=== PATIENT | female | born 1980 | race Caucasian/White ===

== ENCOUNTER 2017-03-11 10:09 | Inpatient (IN) | payer BC ==
[~2017-03-11] VITALS: Ht 177.8 cm; Wt 136.5 kg
[2017-03-11] MEDS ORDERED: KETOROLAC TROMETHAMINE 30 MG/ML VIAL IV STA (10:36)
[2017-03-11] MEDS ORDERED: MORPHINE SULFATE 5 MG/ML VIAL IV ONE ×2 (10:45→14:00)
[2017-03-11] MEDS ORDERED: HYOSCYAMINE SULFATE 0.5 MG/ML AMP IV ONE (10:45)
[2017-03-11 10:51] LABS: BILIRUBIN,URINE NEGATIVE (NEGATIVE); KETONES,URINE NEGATIVE (NEGATIVE); LEUKOCYTE ESTERASE ,URINE 1+ (NEGATIVE); NITRITE,URINE NEGATIVE (NEGATIVE); URINE UROBILINOGEN 0.2 mg/dL (0.2 - 1)
[2017-03-11 10:55] LABS: PREGNANCY TEST, URINE NEGATIVE (NEGATIVE)
[2017-03-11 10:57] LABS: CLARITY,URINE CLOUDY (CLEAR); COLOR,URINE YELLOW (YELLOW); PROTEIN,URINE DIPSTICK 1+ (NEGATIVE)
[2017-03-11 11:14] LABS: BASOPHILS % 0.5 % (0.0-1.0); EOSINOPHILS # (AUTO) 0.1 (0.0-0.4); HEMATOCRIT 41.6 % (34.2-44.1); HEMOGLOBIN 14.4 g/dL (12.0-16.0); LYMPHOCYTES # (AUTO) 2.8 (1.0-3.2); LYMPHOCYTES % 32.1 % (18.0-39.1); MEAN CORPUSCULAR HEMOGLOBIN 29.3 pg (28-32); MEAN CORPUSCULAR HGB CONC 34.6 g/dL (31-35); MEAN CORPUSCULAR VOLUME 84.7 fL (81-99); MONOCYTES # (AUTO) 0.7 (0.2-0.8); MONOCYTES % 7.6 % (4.4-11.3); NEUTROPHILS # (AUTO) 5.1 (2.1-6.9); NEUTROPHILS % 58.5 % (38.7-80.0); PLATELET COUNT 261 x10e3/uL (140-360); RED BLOOD COUNT 4.91 x10e6/uL (3.6-5.1); RED CELL DISTRIBUTION WIDTH 13.1 % (11.7-14.4)
[2017-03-11 11:20] LABS: BACTERIA,URINE RARE /HPF
[2017-03-11 11:22] LABS: EPITHELIAL CELLS,URINE MANY /LPF
--- NOTE | 2017-03-11 11:30 | Diagnostic Imaging Report ---
PROCEDURE:X-RAY ABDOMEN - KUB COMPARISON:None. INDICATIONS:ABDOMEN PAIN FINDINGS: BOWEL GAS PATTERN:Non-specific bowel gas pattern. Focal single dilated small bowel loop in the left abdomen measuring 3.8 cm. Mild amount of stool in the right abdomen. CALCIFICATIONS:None significant. OTHER:Normal for age. CONCLUSION: Focally dilated small bowel loop in the left abdomen measuring 3.8 cm. Correlate for possible focal enteritis. Dictated by: Robert Mauro M.D. on 03/11/2017 at 11:39 Electronically approved by: Robert Mauro M.D. on 03/11/2017 at 11:39
[2017-03-11 11:31] LABS: ALANINE AMINOTRANSFERASE 29 IU/L (0-55); ALBUMIN 3.6 g/dL (3.5-5.0); ALBUMIN/GLOBULIN RATIO 0.9 (0.8-2.0); ALKALINE PHOSPHATASE 65 IU/L (40-150); ANION GAP 11.6 mmol/L (8-16); BLOOD UREA NITROGEN 10 mg/dL (7-26); BUN/CREATININE RATIO 13 (6-25); CALCIUM 9.3 mg/dL (8.4-10.2); CARBON DIOXIDE 25 mmol/L (22-29); CHLORIDE 106 mmol/L (98-107); EST GLOMERULAR FILTRATION RATE > 60 ML/MIN (60-); GLUCOSE 100 mg/dL (74-118); LIPASE 25 U/L (8-78); POTASSIUM 3.6 mmol/L (3.5-5.1); SODIUM 139 mmol/L (136-145)
--- NOTE | 2017-03-11 12:22 | Diagnostic Imaging Report ---
PROCEDURE:US GALLBLADDER COMPARISON:CT abdomen and pelvis 02/07/2011. INDICATIONS:RUQ Pain, Nausea. Right rib pain. FINDINGS: LIVER: Size:17.7 cm in the right nidclavicular line, mildly enlarged Appearance:Normal echogenicity, smooth contour Mass:No focal masses GALLBLADDER: Stones/Sludge:Stone in the gallbladder neck. Sludge filling the remaining visualized lumen. Appearance:No wall thickening, pericholecystic fluid. 14.8 x 5.8 cm. Sonographic Cramer's Sign:Negative BILE DUCTS: Intrahepatic Ducts:No dilation Extrahepatic Ducts:Common bile duct measures 0.6 cm, mildly prominent PANCREAS: Visualized portions of the neck and proximal body are normal. RIGHT KIDNEY: Size:11.6 x 4.9 x 5.7 cm in length Echogenicity:Normal Collecting System:No hydronephrosis Stone:None Cyst/Mass:None VESSELS: Aorta:Visualized portions are normal. Inferior Vena Cava:Visualized portions are normal. Main Portal Vein:1.1 cm, normal size with hepatopedal flow. FREE FLUID: No ascites or pleural effusions. CONCLUSION: 1. Findings concerning for acute cholecystitis with a non-mobile stone in the gallbladder neck and significant sludge filling the gallbladder. Gallbladder hydrops. 2. Common bile duct is mildly prominent which raises the possibility of passing sludge. Dictated by: Robert Mauro M.D. on 03/11/2017 at 12:30 Electronically approved by: Robert Mauro M.D. on 03/11/2017 at 12:30
[2017-03-11] MEDS ORDERED: SODIUM CHLORIDE 0.9% 1000ML 1,000 ML IV SCH (14:00)
[2017-03-11] MEDS ORDERED: PIPER-TAZ 3.375 GM 50 ML IV ONE (14:00)
[2017-03-11] MEDS: SODIUM CHLORIDE 0.9% 1000ML 1,000 ML IV SCH ×2 (14:21→22:08)
[2017-03-11] MEDS ORDERED: PROBIOTIC & AC1 EACH PO (15:12)
[2017-03-11] MEDS: MORPHINE SULFATE 2 MG/ML SYR IV PRN ×2 (17:52→22:44)
[2017-03-11] MEDS: ONDANSETRON HCL INJ 2 MG/ML VIAL IV PRN ×2 (17:53→22:44)
[2017-03-11 18:04] VITALS: BP 121/60
[2017-03-11 18:05] VITALS: BP 121/60
[2017-03-11 20:00] VITALS: BP 101/54
[2017-03-12] VITALS (8 sets, daily range): BP systolic 101–138; BP diastolic 54–79
[2017-03-12] MEDS: SODIUM CHLORIDE 0.9% 1000ML 1,000 ML IV SCH (06:08)
[2017-03-12] MEDS: ONDANSETRON HCL INJ 2 MG/ML VIAL IV PRN ×2 (06:49→21:11)
[2017-03-12] MEDS: MORPHINE SULFATE 2 MG/ML SYR IV PRN (06:49)
[2017-03-12 06:55] LABS: BASOPHILS % 0.5 % (0.0-1.0); EOSINOPHILS # (AUTO) 0.1 (0.0-0.4); EOSINOPHILS % 1.8 % (0.0-6.0); HEMATOCRIT 40.5 % (34.2-44.1); HEMOGLOBIN 13.6 g/dL (12.0-16.0); LYMPHOCYTES % 37.4 % (18.0-39.1); MEAN CORPUSCULAR HEMOGLOBIN 29.1 pg (28-32); MEAN CORPUSCULAR HGB CONC 33.6 g/dL (31-35); MEAN CORPUSCULAR VOLUME 86.5 fL (81-99); MONOCYTES # (AUTO) 0.7 (0.2-0.8); MONOCYTES % 9.1 % (4.4-11.3); NEUTROPHILS # (AUTO) 4.1 (2.1-6.9); NEUTROPHILS % 51.1 % (38.7-80.0); PLATELET COUNT 245 x10e3/uL (140-360); RED BLOOD COUNT 4.68 x10e6/uL (3.6-5.1); RED CELL DISTRIBUTION WIDTH 13.2 % (11.7-14.4)
[2017-03-12 07:11] LABS: INR 0.94
[2017-03-12 07:12] LABS: PARTIAL THROMBOPLASTIN TIME 28.6 seconds (23.8-35.5)
[2017-03-12 07:27] LABS: ALANINE AMINOTRANSFERASE 25 IU/L (0-55); ALBUMIN 3.1 g/dL (3.5-5.0); ALBUMIN/GLOBULIN RATIO 0.9 (0.8-2.0); ALKALINE PHOSPHATASE 58 IU/L (40-150); ANION GAP 10.9 mmol/L (8-16); BLOOD UREA NITROGEN 13 mg/dL (7-26); BUN/CREATININE RATIO 16 (6-25); CALCIUM 8.8 mg/dL (8.4-10.2); CARBON DIOXIDE 25 mmol/L (22-29); CHLORIDE 108 mmol/L (98-107); CREATININE, SERUM 0.81 mg/dL (0.57-1.11); EST GLOMERULAR FILTRATION RATE > 60 ML/MIN (60-); GLUCOSE 92 mg/dL (74-118); POTASSIUM 3.9 mmol/L (3.5-5.1); SODIUM 140 mmol/L (136-145)
[2017-03-12] MEDS ORDERED: GADOBUTROL 10 MMOL/10 ML VIAL IV ONE (12:18)
[2017-03-12] MEDS: PIPER-TAZ 3.375 GM 50 ML IV SCH ×2 (12:23→18:54)
--- NOTE | 2017-03-12 13:41 | History and Physical ---
HPI: A 36-year-old female with no past medical history, came here with abdominal pain. She was found to have acute cholecystitis secondary to a gallstone. REVIEW OF SYSTEMS CARDIOVASCULAR: No chest pain. No palpitation. RESPIRATORY: No shortness of breath. No cough. GASTROINTESTINAL: No nausea. No vomiting. She has right upper quadrant pain, which is better now after receiving pain medication. No diarrhea. No blood in the stools. No black stools. GENITOURINARY: No frequency or dysuria. ALLERGIES: SHE CLAIMS THAT SHE IS NOT ALLERGIC TO ANY MEDICATION. PAST MEDICAL HISTORY: Negative for any significant medical condition. PHYSICAL EXAMINATION VITAL SIGNS: Blood pressure 107/60, temperature 98.7 degrees, heart rate 60 per minute, respiratory rate is 18 per minute, and oxygen saturation 98%. On the BMP, sodium 140, potassium 3.9, chloride 108, CO2 of 25, BUN 13, creatinine 0.81, and glucose 92. On the CBC, white blood count 8.0, hemoglobin 13.6, hematocrit 40.5, and platelet count 145,000. PT 13.0, PTT 28.6, INR 0.94, AST 23, ALT 25, total bilirubin 0.7, and alkaline phosphatase 58. Abdominal ultrasound showed evidence of distended gallbladder with one nonmobile stone. FINAL IMPRESSION: Acute gallstone cholecystitis. PLAN OF TREATMENT: Continue Zosyn 3.375 grams IV piggyback q.6 hours. Continue sodium chloride at 125 mL an hour, Zofran 4 mg IV q.4 hours, morphine 4 mg IV q.[address] Killian Chatterjee, surgeon, has been consulted on the case. She is scheduled to have surgery tomorrow. I have ordered an MRCP also to rule out any evidence of any common bile duct stone prior to surgery. Job#: [id number] SAK
--- NOTE | 2017-03-12 13:49 | Consultation ---
DATE OF CONSULTATION: March 11, 2017 REFERRING PHYSICIAN: Dr. Cordero HISTORY OF PRESENT ILLNESS: Patient is 36-year-old female who presents with complaints of epigastric right upper quadrant abdominal pain, which she has had now for 3 days. She has had some associated nausea. She has not had similar pains in the past. Evaluation in the emergency room with ultrasound revealed gallstones with sludge with a stone impacted in neck of the gallbladder. She has no symptoms of jaundice. PAST MEDICAL HISTORY: Otherwise unremarkable. She has no chronic medical problems. ALLERGIES: SHE HAS NO KNOWN ALLERGIES. PAST SURGICAL HISTORY: She has not had previous abdominal surgery. MEDICATIONS: There are no home medications. FAMILY HISTORY: Noncontributory. SOCIAL HISTORY: The patient does not smoke cigarettes, rarely drinks alcohol. REVIEW OF SYSTEMS: As stated above. There are no symptoms of jaundice. PHYSICAL EXAMINATION: GENERAL: The patient is awake and alert, in no distress. VITAL SIGNS: Normal. HEENT: Reveals no scleral icterus. NECK: Has no masses. LUNGS: Equal breath sounds are clear bilaterally. CARDIAC: Regular rate and rhythm with no murmur. ABDOMEN: Tender in the epigastrium. There is no mass. There are no signs of peritonitis. EXTREMITIES: Have no edema. Pulses are palpable. NEUROLOGIC: Intact. ASSESSMENT: This is a 36-year-old female with findings suggestive of acute cholecystitis with cholelithiasis. She will likely benefit from cholecystectomy, which I plan to schedule for tomorrow. Procedure was explained to the patient including risks, benefits, and alternatives. She understands the procedure. She has had the opportunity to ask questions. She is aware of the possible need for open surgery. Thank you for asking me to see Ms. Rogers. Job#: [id number]
[2017-03-12] MEDS ORDERED: ROCURONIUM BROMIDE 10 MG/ML 5ML VIAL ONE (14:11)
[2017-03-12] MEDS ORDERED: ONDANSETRON HCL INJ 2 MG/ML VIAL ONE ×2 (14:11→17:44)
[2017-03-12] MEDS ORDERED: ACETAMINOPHEN 1000 MG/100 ML IV ONE (14:11)
[2017-03-12] MEDS ORDERED: DESFLURANE 240 ML BTL INH ONE (14:11)
[2017-03-12] MEDS ORDERED: PROPOFOL IV EMULSION 10 MG/ML 20 ML VIAL ONE (14:11)
[2017-03-12] MEDS ORDERED: NEOSTIGMINE 5 MG/5ML SYR ONE (14:11)
[2017-03-12] MEDS ORDERED: GLYCOPYRROLATE INJ 1MG/ 5 ML SYR ONE (14:11)
[2017-03-12] MEDS ORDERED: DEXAMETHASONE SOD PHOS INJ 4 MG/ML VIAL ONE (14:11)
[2017-03-12] MEDS ORDERED: KETOROLAC TROMETHAMINE 30 MG/ML VIAL ONE (14:11)
[2017-03-12] MEDS ORDERED: BUPIVACAINE HCL 0.5% INJ 30 ML VIAL INJ ONE (14:51)
--- NOTE | 2017-03-12 15:29 | Diagnostic Imaging Report ---
EXAM: MRI of the abdomen with and without contrast with MRCP INDICATION: Cholelithiasis. Concern for Choledocholithiasis. COMPARISON: None. TECHNIQUE: Multiplanar and multisequence imaging was performed of the abdomen. T1 and T2-weighted images were obtained with and without contrast. T1-weighted in and [id number] , Dynamic, post gadolinium T1-weighted spoiled gradient echo scans. 10 cc of Gadavist were administered intravenously. M.R.C.P. technique: Multiplanar, multisequence MRCP was performed, with sequences including coronal turbo spin-echo T1-weighted scans, [facility] MRCP scans, coronal spin, coronal MPR 2, SMRCP 3D HR, [facility] MRCP ROMERO. Discussion: LOWER THORAX: Unremarkable. HEPATOBILIARY: No focal hepatic lesions. No biliary ductal dilation. The common bile duct is normal in caliber without filling defects or strictures. GALLBLADDER: Large, 5.7 cm calculus within the gallbladder neck. The gallbladder is mildly hydropic measuring 5.6 cm in transverse dimension on image 99 series 9. SPLEEN: No splenomegaly. PANCREAS: No focal masses or ductal dilatation. ADRENALS: No adrenal nodules KIDNEYS/URETERS: Kidneys enhance symmetrically. No hydronephrosis. No cystic or solid mass lesions. No stones. GI TRACT: No abnormal distention, wall thickening, or evidence of bowel obstruction. Appendix is normal. LYMPH NODES: No lymphadenopathy. VESSELS: Unremarkable. PERITONEUM / RETROPERITONEUM: No free air or fluid. BONES: Unremarkable. SOFT TISSUES: Unremarkable. IMPRESSION: 1. No evidence of choledocholithiasis as per clinical query. 2. Cholelithiasis. Gallbladder hydrops. Signed by: Dr. Renetta Ladd M.D. on 03/12/2017 3:26 PM
[2017-03-12] MEDS ORDERED: FENTANYL CITRATE/PF 100MCG/2 ML INJ ONE ×2 (18:04→19:15)
--- NOTE | 2017-03-12 19:03 | Operative Report ---
DATE OF PROCEDURE: March 12, 2017 PREOPERATIVE DIAGNOSIS: Acute cholecystitis and cholelithiasis. POSTOPERATIVE DIAGNOSIS: Acute cholecystitis and cholelithiasis. PROCEDURES 1. Diagnostic laparoscopy. 2. Laparoscopic cholecystectomy. SERVICE AND REPAIR SUPERVISOR: None. ANESTHESIA: General endotracheal. INDICATIONS AND FINDINGS: Patient is a 36-year-old female admitted to the hospital with the complaints of severe epigastric right upper quadrant abdominal pain. Workup revealed a large gallstone impacted in the neck of the gallbladder. At surgery, the patient's gallbladder was very distended containing a large amount of thick sludge. There was a large stone impacted in the neck of the gallbladder. Cystic duct was about 3 mm in diameter. Common bile duct was about 6 mm in diameter. Liver, stomach and lower abdomen all appeared normal. TECHNIQUE: After adequate general endotracheal anesthesia with the patient in the supine position, the abdomen was prepped and draped in a sterile fashion with [place] solution. Skin of the umbilicus was infiltrated with 0.5% Marcaine. Incision was made in the umbilicus. Abdominal wall was elevated and Veress needle was introduced. Pneumoperitoneum was then created. A 10-mm trocar and cannula was then passed through the umbilical wound. Laparoscopic camera was introduced. Initial laparoscopy revealed the gallbladder very distended and somewhat edematous. Liver, stomach and lower abdomen all appeared normal. A 10-mm trocar and cannula was placed in the epigastrium, and two 5-mm trocars and cannulas were placed in the right upper quadrant. These were placed under direct vision. Gallbladder was tense. Attempt was made to decompress with the needle, but the thick fluid within the gallbladder could not be aspirated through the needle. However, some of the fluid was drained. Fundus was then grasped and retracted superiorly. Neck of the gallbladder was grasped and retracted laterally. Peritoneum over the neck of the gallbladder was incised. The gallbladder and cystic duct junction was dissected free. Cystic artery was also dissected free. The neck of the gallbladder completely dissected free. Cystic artery was divided between Hemoclips close the gallbladder. Cystic duct was also divided between Hemoclips with 3 clips left being left on the common bile duct side. Posterior branch of the cystic artery was also divided between Hemoclips. The gallbladder was dissected free from the liver using scissors and electrocautery. Once it was entirely free, it was placed into an Endopouch and brought out through the epigastric cannula containing 1 very large stone. Gallbladder bed was inspected for hemostasis, which was seen to be adequate. It was irrigated with saline. All fluid aspirated and inspected for hemostasis, which was seen to be adequate. Instruments and cannulas were then removed. Pneumoperitoneum was evacuated. Wounds were then closed. Fascia in the umbilical and epigastric wound closed with 0 Vicryl. Skin to all wounds closed with franny. Sterile dressings applied to each wound. The patient tolerated the procedure well. Estimated blood loss was 40 mL. There were no complications. All counts were correct. Patient was taken to the recovery room in satisfactory condition. Job#: [id number] RI cc:RONI FERNANDEZ MD
[2017-03-12] MEDS ORDERED: MIDAZOLAM HCL 2 MG/2 ML VIAL ONE (19:15)
[2017-03-12] MEDS ORDERED: ACETAMINOPHEN 325 MG TAB PO PRN (21:00)
[2017-03-12] MEDS: MORPHINE SULFATE 5 MG/ML VIAL IV PRN (21:11)
[2017-03-13] VITALS: BP 113/65
[2017-03-13] MEDS: PIPER-TAZ 3.375 GM 50 ML IV SCH ×3 (00:03→12:40)
[2017-03-13 04:00] VITALS: BP 115/68
[2017-03-13] MEDS: ONDANSETRON HCL INJ 2 MG/ML VIAL IV PRN (04:18)
[2017-03-13] MEDS: MORPHINE SULFATE 5 MG/ML VIAL IV PRN (04:18)
[2017-03-13 08:10] VITALS: BP 132/60
[2017-03-13] MEDS: HYDROCODONE/APAP 5MG-325MG TAB PO PRN ×2 (10:22→15:03)
[2017-03-13 12:00] VITALS: BP 108/59
--- NOTE | 2017-03-13 17:25 | Discharge Summary ---
HISTORY OF PRESENT ILLNESS: A 36-year-old female with no past medical history for came here with abdominal pain. She was found to have cholecystitis. Underwent a cholecystectomy by Dr. Killian Chatterjee. MRCP was done also. It showed no evidence of any common bile duct stone. She is tolerating a diet. She will go home today if okay with Dr. Chatterjee. PHYSICAL EXAMINATION: HEART: Shows regular rhythm. Normal S1 and S2 sounds. LUNGS: Clear bilaterally. ABDOMEN: Soft. No tenderness, distention or visceromegaly. Bowel sounds are positive. VITAL SIGNS: Blood pressure 132/60, temperature 97.8, heart rate 72 per minute, respiratory rate is 18 per minute, oxygen saturation 97%. LABORATORY STUDIES: On the blood work, we have BMP: Sodium 140, potassium 3.9, chloride 108, CO2 25, BUN 13, creatinine 0.81, glucose 92. On the CBC: White blood count 8.0, hemoglobin 13.6, hematocrit 40.5, platelet count 245,000. PT 13.0, PTT 28.6, INR 0.94. AST 23, ALT 25, total bilirubin 0.7, alkaline phosphatase 58. FINAL IMPRESSIONS: Acute cholecystitis secondary to gallstone, status post cholecystectomy. PLAN OF TREATMENT: She is going to be discharged on Tylenol No. 4 one tablet every 4 to 6 hours as needed for severe pain only and Zofran oral dissolving tablet 4 mg q.6 hours p.o. as needed for nausea. Follow up with Dr. Chatterjee in a week, follow up with me in 2 weeks. RONI FERNANDEZ MD Job#: [id number] EV
== END 2017-03-13 15:12 | disposition home or self-care (01) | DRG 419 ==
LOC: ER 10:09 → ERHOLD 14:20 → MED/SURG 16:41
PROVIDERS: ADMIT Internal Medicine; ATTEND Internal Medicine
PROC: 0FT44ZZ Resection of Gallbladder, Percutaneous Endoscopic Approach (ICD-10-PCS; principal; 2017-03-12 14:30)
DX: K80.00 Calculus of gallbladder with acute cholecystitis without obstruction (principal)
CPT/HCPCS: 36415; 74000; 74183; 76705; 80053; 81001; 81025; 83690; 85025; 85610; 85730; 87086; 88304; 93005; 99284; A9585; J1100; J1885; J1980; J2250; J2270; J2405; J2543; J7030

== ENCOUNTER 2022-05-14 20:13 | Inpatient (IN) | payer BC ==
[~2022-05-14] VITALS: Ht 177.8 cm; Wt 140.6 kg
[~2022-05-14 20:13] MED LIST: PROBIOTIC & AC1 EACH PO
[2022-05-14] MEDS ORDERED: ONDANSETRON HCL INJ 2MG/ML 2ML 2 MG/ML VIAL IV STA (21:57)
[2022-05-14] MEDS ORDERED: KETOROLAC TROMETHAMINE 30 MG/ML VIAL IV STA (21:57)
[2022-05-14] MEDS ORDERED: SODIUM CHLORIDE 0.9% 1000ML 1,000 ML IV ONE (22:00)
[2022-05-14 22:07] LABS: BASOPHILS # (AUTO) 0.1 (0.0-0.1); BASOPHILS % 0.4 % (0.0-1.0); EOSINOPHILS # (AUTO) 0.1 (0.0-0.4); EOSINOPHILS % 0.7 % (0.0-6.0); HEMATOCRIT 43.4 % (34.2-44.1); HEMOGLOBIN 14.4 g/dL (12.0-16.0); LYMPHOCYTES # (AUTO) 3.7 (1.0-3.2); LYMPHOCYTES % 27.1 % (18.0-39.1); MEAN CORPUSCULAR HEMOGLOBIN 28.8 pg (28-32); MEAN CORPUSCULAR HGB CONC 33.2 g/dL (31-35); MEAN CORPUSCULAR VOLUME 86.8 fL (81-99); MONOCYTES # (AUTO) 0.9 (0.2-0.8); MONOCYTES % 6.3 % (4.4-11.3); NEUTROPHILS # (AUTO) 8.9 (2.1-6.9); NEUTROPHILS % 65.3 % (38.7-80.0); PLATELET COUNT 310 x10e3/uL (140-360); RED CELL DISTRIBUTION WIDTH 13.1 % (11.7-14.4)
[2022-05-14 22:08] LABS: CLARITY,URINE SL CLOUDY (CLEAR); COLOR,URINE YELLOW (YELLOW); KETONES,URINE TRACE (NEGATIVE); LEUKOCYTE ESTERASE ,URINE TRACE (NEGATIVE); NITRITE,URINE NEGATIVE (NEGATIVE); PROTEIN,URINE DIPSTICK TRACE (NEGATIVE); URINE UROBILINOGEN 0.2 mg/dL (0.2 - 1)
[2022-05-14 22:17] LABS: BACTERIA,URINE FEW /HPF; EPITHELIAL CELLS,URINE MODERATE /LPF; RBC,URINE 21-50 /HPF (0-5)
[2022-05-14 22:25] LABS: ALBUMIN 3.7 g/dL (3.5-5.0); ALBUMIN/GLOBULIN RATIO 0.9 (0.8-2.0); ANION GAP 14.3 mmol/L (8-16); CALCIUM 9.5 mg/dL (8.4-10.2); CREATININE, SERUM 0.88 mg/dL (0.57-1.11); POTASSIUM 4.3 mmol/L (3.5-5.1)
[2022-05-14] MEDS ORDERED: SODIUM CHLORIDE 0.9% 1000ML 1,000 ML IV SCH (23:00)
[2022-05-14] MEDS ORDERED: MELATONIN 5 MG TABLET PO PRN (23:30)
[2022-05-14] MEDS ORDERED: ALBUTEROL/IPRATROPIUM 3 ML NEB NEB PRN (23:30)
[2022-05-14] MEDS ORDERED: SIMETHICONE 80 MG CHEW PO PRN (23:30)
[2022-05-14] MEDS ORDERED: LIDOCAINE 4% PATCH TP PRN (23:30)
[2022-05-14] MEDS ORDERED: POTASSIUM CHLORIDE 20 MEQ TAB CR PO PRN (23:30)
[2022-05-14] MEDS ORDERED: HYDRALAZINE HCL 20 MG/ML VIAL IV PRN (23:30)
[2022-05-14] MEDS ORDERED: DOCUSATE SODIUM 100 MG CAP PO PRN (23:30)
[2022-05-14] MEDS ORDERED: ACETAMINOPHEN 325 MG TAB PO PRN (23:30)
[2022-05-14] MEDS ORDERED: DIPHENHYDRAMINE HCL 25 MG CAP PO PRN (23:30)
[2022-05-14] MEDS ORDERED: DEXTROSE 50% SYRINGE 50 ML IV PRN (23:30)
[2022-05-14] MEDS ORDERED: BENZONATATE 100 MG CAP PO PRN (23:30)
[2022-05-14] MEDS: DEXTROSE 5%/0.9% SOD CHL 1,000 ML IV SCH (23:54)
[2022-05-15] VITALS (8 sets, daily range): BP systolic 115–145; BP diastolic 75–84
[2022-05-15] MEDS: Morphine 4mg INJECTION 4 MG/ML INJ IV PRN ×3 (00:02→17:58)
[2022-05-15] MEDS ORDERED: ONDANSETRON HCL INJ 2MG/ML 2ML 2 MG/ML VIAL IV PRN (02:00)
[2022-05-15] MEDS ORDERED: KETOROLAC TROMETHAMINE 30 MG/ML VIAL IV PRN ×2 (04:00→12:30)
[2022-05-15] MEDS ORDERED: COLESTIPOL HCL1 GM PO (04:14)
[2022-05-15 06:29] LABS: BASOPHILS % 0.5 % (0.0-1.0); EOSINOPHILS # (AUTO) 0.1 (0.0-0.4); EOSINOPHILS % 1.6 % (0.0-6.0); HEMATOCRIT 39.9 % (34.2-44.1); HEMOGLOBIN 12.9 g/dL (12.0-16.0); LYMPHOCYTES # (AUTO) 3.2 (1.0-3.2); LYMPHOCYTES % 36.6 % (18.0-39.1); MEAN CORPUSCULAR HEMOGLOBIN 28.7 pg (28-32); MEAN CORPUSCULAR HGB CONC 32.3 g/dL (31-35); MEAN CORPUSCULAR VOLUME 88.9 fL (81-99); MONOCYTES # (AUTO) 0.6 (0.2-0.8); MONOCYTES % 6.5 % (4.4-11.3); NEUTROPHILS # (AUTO) 4.7 (2.1-6.9); NEUTROPHILS % 54.6 % (38.7-80.0); PLATELET COUNT 223 x10e3/uL (140-360); RED BLOOD COUNT 4.49 x10e6/uL (3.6-5.1); RED CELL DISTRIBUTION WIDTH 13.1 % (11.7-14.4)
[2022-05-15 06:46] LABS: ANION GAP 11.7 mmol/L (8-16); CALCIUM 8.5 mg/dL (8.4-10.2); CREATININE, SERUM 0.74 mg/dL (0.57-1.11); POTASSIUM 3.7 mmol/L (3.5-5.1)
[2022-05-15 07:00] LABS: MAGNESIUM 1.9 MG/DL (1.3-2.1); PHOSPHORUS 3.2 MG/DL (2.3-4.7)
[2022-05-15] MEDS ORDERED: IOPAMIDOL 610MG/1ML 300 MG/ML VIAL IV ONE (07:18)
[2022-05-15] MEDS ORDERED: ACETAMINOPHEN/CODEINE 300MG - 30MG TAB PO PRN (07:45)
[2022-05-15] MEDS ORDERED: PHENAZOPYRIDINE HCL 100 MG TAB PO PRN (07:45)
[2022-05-15] MEDS: PANTOPRAZOLE SOD 40 MG TABEC PO SCH (09:45)
[2022-05-15] MEDS: SOLIFENACIN SUCCINATE 5 MG TAB PO SCH (09:45)
[2022-05-15] MEDS: DEXTROSE 5%/0.9% SOD CHL 1,000 ML IV SCH ×3 (09:50→21:00)
[2022-05-15] MEDS ORDERED: GLYCOPYRROLATE INJ 0.2 MG/ML VIAL ONE (12:17)
[2022-05-15] MEDS ORDERED: LIDOCAINE HCL 2% LOCAL INJ 5 ML SDV VIAL INJ ONE (12:17)
[2022-05-15] MEDS ORDERED: ONDANSETRON HCL INJ 2MG/ML 2ML 2 MG/ML VIAL ONE (12:17)
[2022-05-15] MEDS ORDERED: POVIDONE IODINE 0.05% 0.05 % ML PO ONE (12:17)
[2022-05-15] MEDS ORDERED: DEXAMETHASONE SOD PHOS INJ 4 MG/ML SDV ONE (12:17)
[2022-05-15] MEDS ORDERED: PROPOFOL IV EMULSION 10 MG/ML 20 ML VIAL ONE (12:17)
[2022-05-15] MEDS ORDERED: FENTANYL CITRATE/PF 100MCG/2 ML INJ ONE (12:30)
[2022-05-15] MEDS ORDERED: MIDAZOLAM HCL 2 MG/2 ML VIAL ONE (12:30)
[2022-05-16] MEDS: Morphine 4mg INJECTION 4 MG/ML INJ IV PRN (02:55)
[2022-05-16 04:00] VITALS: BP 118/62
[2022-05-16] MEDS: DEXTROSE 5%/0.9% SOD CHL 1,000 ML IV SCH (05:54)
[2022-05-16 06:07] LABS: BASOPHILS # (AUTO) 0.1 (0.0-0.1); BASOPHILS % 0.4 % (0.0-1.0); EOSINOPHILS # (AUTO) 0.1 (0.0-0.4); EOSINOPHILS % 0.6 % (0.0-6.0); HEMATOCRIT 40.2 % (34.2-44.1); HEMOGLOBIN 12.9 g/dL (12.0-16.0); LYMPHOCYTES % 24.4 % (18.0-39.1); MEAN CORPUSCULAR HEMOGLOBIN 28.7 pg (28-32); MEAN CORPUSCULAR HGB CONC 32.1 g/dL (31-35); MEAN CORPUSCULAR VOLUME 89.5 fL (81-99); MONOCYTES # (AUTO) 0.8 (0.2-0.8); MONOCYTES % 6.8 % (4.4-11.3); NEUTROPHILS # (AUTO) 8.3 (2.1-6.9); NEUTROPHILS % 67.5 % (38.7-80.0); PLATELET COUNT 246 x10e3/uL (140-360); RED BLOOD COUNT 4.49 x10e6/uL (3.6-5.1)
[2022-05-16 06:37] LABS: CALCIUM 8.3 mg/dL (8.4-10.2); CREATININE, SERUM 0.69 mg/dL (0.57-1.11)
[2022-05-16 08:36] VITALS: BP 155/83
[2022-05-16] MEDS: SOLIFENACIN SUCCINATE 5 MG TAB PO SCH (09:20)
[2022-05-16] MEDS: PANTOPRAZOLE SOD 40 MG TABEC PO SCH (09:20)
[2022-05-16] MEDS ORDERED: ONDANSETRON HCL 4 MG ORAL DISINTEGRATING TAB PO PRN (11:00)
[2022-05-16 13:08] VITALS: BP 120/74
[2022-05-16] MEDS ORDERED: CEFDINIR300 MG PO (13:53)
[2022-05-16] MEDS ORDERED: TYLENOL #3 PO (16:24)
[2022-05-16] MEDS ORDERED: VESICARE10 MG PO (16:25)
[2022-06-29] MEDS ORDERED: Acetaminophen/Codeine 300-30MG PO (18:29)
[2022-06-29] MEDS ORDERED: VESICARE5 MG PO (18:29)
[2022-06-29] MEDS ORDERED: DIFLUCAN100 MG PO (18:29)
[2022-06-29] MEDS ORDERED: CEFUROXIME500 MG PO (18:29)
== END 2022-05-16 17:51 | disposition home or self-care (01) | DRG 660 ==
LOC: ER 20:26 → ERHOLD 22:59 → MED/SURG3 05-15 03:07
PROVIDERS: ADMIT Internal Medicine; ATTEND Internal Medicine
PROC: 0T768DZ Dilation of Right Ureter with Intraluminal Device, Via Natural or Artificial Opening Endoscopic (ICD-10-PCS; 2022-05-15)
PROC: BT14YZZ Fluoroscopy of Kidneys, Ureters and Bladder using Other Contrast (ICD-10-PCS; principal; 2022-05-15 07:15)
DX: N13.2 Hydronephrosis with renal and ureteral calculous obstruction (principal); Z68.41 Body mass index [BMI] 40.0-44.9, adult; E78.5 Hyperlipidemia, unspecified; E66.01 Morbid (severe) obesity due to excess calories; Z90.49 Acquired absence of other specified parts of digestive tract; Z20.822 Contact with and (suspected) exposure to COVID-19
CPT/HCPCS: 0223U; 36415; 74176; 74420; 80048; 80053; 81001; 83690; 83735; 84100; 85025; 87086; 99284; C1758; C1769; C2617; J0692; J1100; J1885; J2001; J2250; J2270; J2405; J7030; J7042

== ENCOUNTER 2022-06-26 19:21 | Inpatient (IN) | payer BC ==
[~2022-06-26] VITALS: Ht 177.8 cm; Wt 145.9 kg
[~2022-06-26 19:21] MED LIST changes: +CEFDINIR300 MG PO; +COLESTIPOL HCL1 GM PO; +TYLENOL #3 PO; +VESICARE10 MG PO
[2022-06-26] MEDS ORDERED: SODIUM CHLORIDE FLUSH 10 ML SYR IV PRN (21:00)
[2022-06-26] MEDS ORDERED: SODIUM CHLORIDE 0.9% 1000ML 1,000 ML IV SCH (21:00)
[2022-06-26 21:07] LABS: BASOPHILS # (AUTO) 0.1 (0.0-0.1); BASOPHILS % 0.5 % (0.0-1.0); EOSINOPHILS # (AUTO) 0.2 (0.0-0.4); EOSINOPHILS % 1.5 % (0.0-6.0); HEMATOCRIT 41.2 % (34.2-44.1); HEMOGLOBIN 13.8 g/dL (12.0-16.0); LYMPHOCYTES # (AUTO) 3.8 (1.0-3.2); LYMPHOCYTES % 36.6 % (18.0-39.1); MEAN CORPUSCULAR HEMOGLOBIN 29.2 pg (28-32); MEAN CORPUSCULAR HGB CONC 33.5 g/dL (31-35); MEAN CORPUSCULAR VOLUME 87.3 fL (81-99); MONOCYTES # (AUTO) 0.7 (0.2-0.8); MONOCYTES % 6.9 % (4.4-11.3); NEUTROPHILS # (AUTO) 5.6 (2.1-6.9); NEUTROPHILS % 54.3 % (38.7-80.0); PLATELET COUNT 322 x10e3/uL (140-360); RED BLOOD COUNT 4.72 x10e6/uL (3.6-5.1); RED CELL DISTRIBUTION WIDTH 13.2 % (11.7-14.4)
[2022-06-26 21:11] LABS: INR 0.89; PROTHROMBIN TIME 12.5 seconds (11.9-14.5)
[2022-06-26 21:12] LABS: CLARITY,URINE CLOUDY (CLEAR); COLOR,URINE BROWN (YELLOW); KETONES,URINE NEGATIVE (NEGATIVE); LEUKOCYTE ESTERASE ,URINE SMALL (NEGATIVE); NITRITE,URINE NEGATIVE (NEGATIVE); PROTEIN,URINE DIPSTICK 2+ (NEGATIVE); URINE UROBILINOGEN 0.2 mg/dL (0.2 - 1)
[2022-06-26 21:13] LABS: AMPHETAMINES SCREEN,URINE NEGATIVE (NEGATIVE); BENZODIAZEPINES SCREEN,URINE NEGATIVE (NEGATIVE); PHENCYCLIDINE SCREEN,URINE NEGATIVE (NEGATIVE)
[2022-06-26 21:21] LABS: ALBUMIN 3.7 g/dL (3.5-5.0); ALBUMIN/GLOBULIN RATIO 0.9 (0.8-2.0); ANION GAP 13.9 mmol/L (8-16); CALCIUM 9.7 mg/dL (8.4-10.2); CREATININE, SERUM 0.82 mg/dL (0.57-1.11); POTASSIUM 3.9 mmol/L (3.5-5.1)
[2022-06-26] MEDS ORDERED: ONDANSETRON HCL INJ 2MG/ML 2ML 2 MG/ML VIAL IV STA (21:21)
[2022-06-26 21:22] LABS: BACTERIA,URINE MODERATE /HPF; EPITHELIAL CELLS,URINE FEW /LPF; RBC,URINE 21-50 /HPF (0-5)
[2022-06-26] MEDS ORDERED: Morphine 4mg INJECTION 4 MG/ML INJ IV ONE (21:30)
[2022-06-26] MEDS ORDERED: Morphine 4mg INJECTION 4 MG/ML INJ IV PRN (23:00)
[2022-06-26] MEDS: SODIUM CHLORIDE 0.9% 1000ML 1,000 ML IV SCH (23:39)
[2022-06-27] VITALS (7 sets, daily range): BP systolic 110–154; BP diastolic 67–94; PULSE 68–80; RESP 16–21; TEMP 97–98.3; O2SAT 96–99
[2022-06-27] MEDS: ONDANSETRON HCL INJ 2MG/ML 2ML 2 MG/ML VIAL IV PRN ×2 (05:08→10:51)
[2022-06-27 06:11] LABS: BASOPHILS # (AUTO) 0.1 (0.0-0.1); BASOPHILS % 0.6 % (0.0-1.0); EOSINOPHILS # (AUTO) 0.1 (0.0-0.4); EOSINOPHILS % 1.6 % (0.0-6.0); HEMATOCRIT 36.6 % (34.2-44.1); LYMPHOCYTES # (AUTO) 2.8 (1.0-3.2); LYMPHOCYTES % 32.7 % (18.0-39.1); MEAN CORPUSCULAR HEMOGLOBIN 29.3 pg (28-32); MEAN CORPUSCULAR HGB CONC 32.8 g/dL (31-35); MEAN CORPUSCULAR VOLUME 89.5 fL (81-99); MONOCYTES # (AUTO) 0.7 (0.2-0.8); NEUTROPHILS # (AUTO) 4.9 (2.1-6.9); NEUTROPHILS % 56.9 % (38.7-80.0); PLATELET COUNT 241 x10e3/uL (140-360); RED BLOOD COUNT 4.09 x10e6/uL (3.6-5.1); RED CELL DISTRIBUTION WIDTH 12.9 % (11.7-14.4)
[2022-06-27] MEDS ORDERED: ACETAMINOPHEN 1000 MG/100 ML 100 ML IV ONE (06:31)
[2022-06-27 06:42] LABS: ALBUMIN/GLOBULIN RATIO 0.9 (0.8-2.0); ANION GAP 10.7 mmol/L (8-16); CALCIUM 8.5 mg/dL (8.4-10.2); CREATININE, SERUM 0.77 mg/dL (0.57-1.11); POTASSIUM 3.7 mmol/L (3.5-5.1)
[2022-06-27] MEDS ORDERED: IOPAMIDOL 610MG/1ML 300 MG/ML VIAL IV ONE (07:10)
[2022-06-27] MEDS ORDERED: GENTAMICIN 80MG/NS 100 ML 200 ML IV ONE (07:51)
[2022-06-27] MEDS ORDERED: ACETAMINOPHEN 325 MG TAB PO PRN (08:45)
[2022-06-27] MEDS: FENTANYL CITRATE/PF 100MCG/2 ML INJ ONE ×4 (09:35→09:55)
[2022-06-27] MEDS ORDERED: ACETAMINOPHEN/CODEINE 300MG - 30MG TAB PO PRN (09:45)
[2022-06-27] MEDS ORDERED: PHENAZOPYRIDINE HCL 100 MG TAB PO PRN (09:45)
[2022-06-27] MEDS: FLUCONAZOLE 100 MG TAB PO SCH (10:45)
[2022-06-27] MEDS: SOLIFENACIN SUCCINATE 5 MG TAB PO SCH (10:46)
[2022-06-27] MEDS: KETOROLAC TROMETHAMINE 30 MG/ML VIAL IV PRN ×2 (11:22→17:15)
[2022-06-27] MEDS: SODIUM CHLORIDE 0.9% 1000ML 1,000 ML IV SCH ×3 (13:00→21:22)
[2022-06-27] MEDS ORDERED: POVIDONE IODINE 0.05% 0.05 % ML PO ONE (13:41)
[2022-06-27] MEDS ORDERED: DEXAMETHASONE SOD PHOS INJ 4 MG/ML SDV ONE (13:41)
[2022-06-27] MEDS ORDERED: ONDANSETRON HCL INJ 2MG/ML 2ML 2 MG/ML VIAL ONE (13:41)
[2022-06-27] MEDS ORDERED: LIDOCAINE HCL 2% LOCAL INJ 5 ML SDV VIAL INJ ONE (13:41)
[2022-06-27] MEDS ORDERED: SEVOFLURANE INHAL SOLN 250 ML PEN BTL ONE (13:41)
[2022-06-27] MEDS ORDERED: PROPOFOL IV EMULSION 10 MG/ML 20 ML VIAL ONE (13:41)
[2022-06-27] MEDS ORDERED: FENTANYL CITRATE/PF 100MCG/2 ML INJ ONE (15:02)
[2022-06-27] MEDS ORDERED: CEFTRIAXONE 2 GM in SODIUM CHLORIDE 0.9% 100 ML IV SCH (21:00)
[2022-06-27] MEDS ORDERED: LOPERAMIDE HCL 2 MG CAP PO PRN (21:15)
[2022-06-27] MEDS ORDERED: LOPERAMIDE HCL 2 MG CAP PO ONE (21:15)
[2022-06-28] VITALS (8 sets, daily range): BP systolic 122–149; BP diastolic 64–87; PULSE 65–86; RESP 17–20; TEMP 97.7–98.5; O2SAT 96–99
[2022-06-28] MEDS: KETOROLAC TROMETHAMINE 30 MG/ML VIAL IV PRN ×3 (03:05→15:33)
[2022-06-28] MEDS: SODIUM CHLORIDE 0.9% 1000ML 1,000 ML IV SCH ×3 (06:40→23:15)
[2022-06-28 07:14] LABS: BASOPHILS % 0.3 % (0.0-1.0); EOSINOPHILS # (AUTO) 0.1 (0.0-0.4); EOSINOPHILS % 0.6 % (0.0-6.0); HEMATOCRIT 36.5 % (34.2-44.1); HEMOGLOBIN 11.9 g/dL (12.0-16.0); LYMPHOCYTES # (AUTO) 2.3 (1.0-3.2); LYMPHOCYTES % 18.6 % (18.0-39.1); MEAN CORPUSCULAR HEMOGLOBIN 29.1 pg (28-32); MEAN CORPUSCULAR HGB CONC 32.6 g/dL (31-35); MEAN CORPUSCULAR VOLUME 89.2 fL (81-99); MONOCYTES # (AUTO) 0.9 (0.2-0.8); MONOCYTES % 7.3 % (4.4-11.3); NEUTROPHILS # (AUTO) 9.1 (2.1-6.9); NEUTROPHILS % 72.8 % (38.7-80.0); PLATELET COUNT 253 x10e3/uL (140-360); RED BLOOD COUNT 4.09 x10e6/uL (3.6-5.1); RED CELL DISTRIBUTION WIDTH 12.9 % (11.7-14.4)
[2022-06-28 07:38] LABS: ANION GAP 12.1 mmol/L (8-16); CALCIUM 8.4 mg/dL (8.4-10.2); CREATININE, SERUM 0.7 mg/dL (0.57-1.11); MAGNESIUM 1.7 MG/DL (1.3-2.1); POTASSIUM 4.1 mmol/L (3.5-5.1)
[2022-06-29] VITALS: BP 138/79; PULSE 58; RESP 18; TEMP 98.1; O2SAT 99
[2022-06-29 04:25] VITALS: BP 112/70; PULSE 65; RESP 16; TEMP 97.8; O2SAT 99
[2022-06-29 06:25] LABS: BASOPHILS # (AUTO) 0.1 (0.0-0.1); BASOPHILS % 0.6 % (0.0-1.0); EOSINOPHILS # (AUTO) 0.2 (0.0-0.4); EOSINOPHILS % 2.3 % (0.0-6.0); HEMOGLOBIN 11.7 g/dL (12.0-16.0); LYMPHOCYTES # (AUTO) 3.9 (1.0-3.2); LYMPHOCYTES % 39.9 % (18.0-39.1); MEAN CORPUSCULAR HGB CONC 32.5 g/dL (31-35); MEAN CORPUSCULAR VOLUME 89.3 fL (81-99); MONOCYTES # (AUTO) 0.8 (0.2-0.8); MONOCYTES % 7.8 % (4.4-11.3); NEUTROPHILS # (AUTO) 4.8 (2.1-6.9); NEUTROPHILS % 49.1 % (38.7-80.0); PLATELET COUNT 225 x10e3/uL (140-360); RED BLOOD COUNT 4.03 x10e6/uL (3.6-5.1)
[2022-06-29 06:47] LABS: ALBUMIN 2.9 g/dL (3.5-5.0); ANION GAP 12.6 mmol/L (8-16); CALCIUM 8.2 mg/dL (8.4-10.2); CREATININE, SERUM 0.67 mg/dL (0.57-1.11); MAGNESIUM 1.5 MG/DL (1.3-2.1); POTASSIUM 3.6 mmol/L (3.5-5.1)
[2022-06-29] MEDS: SODIUM CHLORIDE 0.9% 1000ML 1,000 ML IV SCH ×2 (07:00→15:43)
[2022-06-29 08:46] VITALS: BP 135/77; PULSE 66; RESP 24; TEMP 97.5; O2SAT 99
[2022-06-29] MEDS: SOLIFENACIN SUCCINATE 5 MG TAB PO SCH (09:10)
[2022-06-29] MEDS: FLUCONAZOLE 100 MG TAB PO SCH (09:10)
[2022-06-29 12:17] VITALS: BP 142/78; PULSE 73; RESP 19; TEMP 97.9; O2SAT 100
[2022-06-29 16:30] VITALS: BP 140/90; PULSE 65; RESP 17; TEMP 98.1; O2SAT 98
[2022-06-29] MEDS ORDERED: CEFUROXIME500 MG PO (18:29)
[2022-06-29] MEDS ORDERED: DIFLUCAN100 MG PO (18:29)
[2022-06-29] MEDS ORDERED: Acetaminophen/Codeine 300-30MG PO (18:29)
[2022-06-29] MEDS ORDERED: VESICARE5 MG PO (18:29)
== END 2022-06-29 18:40 | disposition home or self-care (01) | DRG 660 ==
LOC: ER 19:28 → ERHOLD 22:54 → INTOOBSV 22:54 → MED/SURG2 23:45 → OBSVTOIN 06-28 10:31 → MED/SURG2 06-28 15:42
PROVIDERS: ADMIT Internal Medicine; ATTEND Internal Medicine
PROC: 0TC08ZZ Extirpation of Matter from Right Kidney, Via Natural or Artificial Opening Endoscopic (ICD-10-PCS; principal; 2022-06-27 07:47)
PROC: 0T768DZ Dilation of Right Ureter with Intraluminal Device, Via Natural or Artificial Opening Endoscopic (ICD-10-PCS; 2022-06-27 07:47)
DX: N20.0 Calculus of kidney (principal); N39.0 Urinary tract infection, site not specified; T83.592A Infection and inflammatory reaction due to indwelling ureteral stent, initial encounter; N13.9 Obstructive and reflux uropathy, unspecified; I10 Essential (primary) hypertension; N81.6 Rectocele; Z87.442 Personal history of urinary calculi; Z90.49 Acquired absence of other specified parts of digestive tract
CPT/HCPCS: 0223U; 36415; 71045; 74018; 74420; 80053; 80307; 81001; 83735; 84484; 84702; 85025; 85610; 85730; 87086; 88300; 93005; 99284; C1769; C2617; G0378; J0696; J1100; J1580; J1885; J2001; J2270; J2405; J7030

== ENCOUNTER → 2022-07-30 | Day surgery (SDC) | payer BC ==
[~2022-07-30] MED LIST changes: +Acetaminophen/Codeine 300-30MG PO; +CEFPODOXIME PR200 MG PO; +CEFUROXIME500 MG PO; +DEXAMETHASONE SOD PHOS INJ 4 MG/ML SDV ONE; +DIFLUCAN100 MG PO; +FENTANYL CITRATE/PF 100MCG/2 ML INJ ONE; +GENTAMICIN 80MG/NS 100 ML 200 ML IV ONE; +HYDROCODONE-AC118 M1 PO; +IOPAMIDOL 610MG/1ML 300 MG/ML VIAL IV ONE; +KETOROLAC TROMETHAMINE 30 MG/ML VIAL ONE; +LACTATED RINGER'S 1,000 ML ONE; +LIDOCAINE HCL 2% LOCAL INJ 5 ML SDV VIAL INJ ONE; +ONDANSETRON HCL INJ 2MG/ML 2ML 2 MG/ML VIAL ONE; +POVIDONE IODINE 0.05% 0.05 % ML PO ONE; +PROPOFOL IV EMULSION 10 MG/ML 20 ML VIAL ONE; +SEVOFLURANE INHAL SOLN 250 ML PEN BTL ONE; +VESICARE5 MG PO
[2022-07-30 10:59] LABS: BASOPHILS % 0.3 % (0.0-1.0); EOSINOPHILS # (AUTO) 0.1 (0.0-0.4); EOSINOPHILS % 1.2 % (0.0-6.0); HEMATOCRIT 40.7 % (34.2-44.1); HEMOGLOBIN 13.6 g/dL (12.0-16.0); LYMPHOCYTES % 32.1 % (18.0-39.1); MEAN CORPUSCULAR HEMOGLOBIN 29.3 pg (28-32); MEAN CORPUSCULAR HGB CONC 33.4 g/dL (31-35); MEAN CORPUSCULAR VOLUME 87.7 fL (81-99); MONOCYTES # (AUTO) 0.7 (0.2-0.8); MONOCYTES % 7.1 % (4.4-11.3); NEUTROPHILS # (AUTO) 5.5 (2.1-6.9); PLATELET COUNT 281 x10e3/uL (140-360); RED BLOOD COUNT 4.64 x10e6/uL (3.6-5.1); RED CELL DISTRIBUTION WIDTH 12.9 % (11.7-14.4)
[2022-07-30 11:24] LABS: CALCIUM 9.2 mg/dL (8.4-10.2); CREATININE, SERUM 0.87 mg/dL (0.57-1.11)
[2022-07-30 12:52] VITALS: TEMP 97.6
[2022-07-30 13:55] VITALS: BP 150/80; PULSE 83; RESP 18; O2SAT 97
== END | disposition home or self-care (01) ==
LOC: OR 09:59
PROVIDERS: ATTEND Urology
DX: N20.1 Calculus of ureter (principal); N20.0 Calculus of kidney; Z46.6 Encounter for fitting and adjustment of urinary device; N28.89 Other specified disorders of kidney and ureter; N39.0 Urinary tract infection, site not specified; N81.10 Cystocele, unspecified; N81.6 Rectocele; N95.2 Postmenopausal atrophic vaginitis; G89.29 Other chronic pain
CPT/HCPCS: 36415; 52353; 74018; 74420; 80048; 84550; 85025; 87086; 88300; C1766; C1769; J1100; J1580; J1885; J2001; J2405; J2704; J3010; J7121; Q9967

== ENCOUNTER 2024-09-08 19:42 | Emergency (ER) | payer BC, OTHER ==
[~2024-09-08] VITALS: Ht 177.8 cm; Wt 133.8 kg
[~2024-09-08 19:42] MED LIST changes: -DEXAMETHASONE SOD PHOS INJ 4 MG/ML SDV ONE; -FENTANYL CITRATE/PF 100MCG/2 ML INJ ONE; -GENTAMICIN 80MG/NS 100 ML 200 ML IV ONE; -IOPAMIDOL 610MG/1ML 300 MG/ML VIAL IV ONE; -KETOROLAC TROMETHAMINE 30 MG/ML VIAL ONE; -LACTATED RINGER'S 1,000 ML ONE; -LIDOCAINE HCL 2% LOCAL INJ 5 ML SDV VIAL INJ ONE; -ONDANSETRON HCL INJ 2MG/ML 2ML 2 MG/ML VIAL ONE; -POVIDONE IODINE 0.05% 0.05 % ML PO ONE; -PROPOFOL IV EMULSION 10 MG/ML 20 ML VIAL ONE; -SEVOFLURANE INHAL SOLN 250 ML PEN BTL ONE
[2024-09-08 21:19] LABS: LEUKOCYTE ESTERASE ,URINE NEGATIVE (NEGATIVE); PROTEIN,URINE DIPSTICK NEGATIVE (NEGATIVE); URINE UROBILINOGEN 0.2 mg/dL (0.2 - 1)
[2024-09-08 21:25] LABS: BASOPHILS % 0.8 % (0.0-1.0); EOSINOPHILS % 1.3 % (0.0-6.0); LYMPHOCYTES % 47.3 % (18.0-39.1); MONOCYTES % 8.4 % (4.4-11.3); NEUTROPHILS % 42.1 % (38.7-80.0); RED CELL DISTRIBUTION WIDTH 13.1 % (11.7-14.4)
[2024-09-08 21:40] LABS: EPITHELIAL CELLS,URINE FEW /LPF; WBC,URINE (MAN) 0-5 /HPF (0-5)
[2024-09-08] MEDS: SODIUM CHLORIDE 0.9% 1000ML 1,000 ML IV STA (21:49)
[2024-09-08] MEDS: KETOROLAC TROMETHAMINE 30 MG/ML VIAL IV STA (21:50)
[2024-09-08] MEDS: ONDANSETRON HCL INJ 2MG/ML 2ML 2 MG/ML VIAL IV STA (21:50)
[2024-09-08 22:30] LABS: EST GLOMERULAR FILTRATION RATE 87.0 ML/MIN (>=60)
[2024-09-08] MEDS ORDERED: ONDANSETRON ODT4 MG PO (22:54)
[2024-09-08] MEDS ORDERED: KETOROLAC TROME10 MG PO (22:54)
[2024-09-08] MEDS ORDERED: ULTRAM 50MG50 MG PO (22:54)
[2024-09-08] MEDS: Morphine 4mg INJECTION 4 MG/ML INJ IV STA (23:21)
[2024-09-08 23:23] VITALS: PULSE 71; RESP 18; TEMP 98.8
[2024-09-08 23:25] VITALS: BP 132/76; PULSE 67; RESP 17; TEMP 97.5; O2SAT 98
== END 2024-09-08 23:28 | disposition home or self-care (01) ==
LOC: ER 20:02
DX: R10.31 Right lower quadrant pain (principal); M54.50 Low back pain, unspecified; N20.0 Calculus of kidney; R16.0 Hepatomegaly, not elsewhere classified
CPT/HCPCS: 36415; 74176; 80053; 81001; 83690; 85025; 99284; J1885; J2270; J2405; J7030